=== PATIENT | female | born 1990 | race Asian ===

== ENCOUNTER 2020-08-15 07:42 | Outpatient (CLI) | payer OTHER ==
[2020-08-15] MEDS ORDERED: GADOBUTROL 10 MMOL/10 ML VIAL ONE (08:28)
--- NOTE | 2020-08-15 12:55 | MRI Report ---
PROCEDURE: Pelvis W/WO INDICATIONS: UNICORNUATE UTERUS CONTRAST: IV CONTRAST: Gadavist ml: 5.5 TECHNIQUE: Coronal ultra fast SE, sagittal breath-hold T2 FSE; axial T1 FSE with and without fat saturation thro ugh the pelvis. Optional long- and short-axis uterine nonbreath-hold T2 FSE through the uterus. Sag ittal or axial dynamic ultra fast GE during administration of contrast. Post-contrast axial or coron al ultra fast GE / 2-D spoiled GE with fat saturation from the iliac crests to the symphysis. Option al diffusion weighted imaging and ADC may be performed. COMPARISON: None. FINDINGS: Image quality: Excellent. Uterus: The uterus is retroverted and slightly diminutive size measuring about 4.0 x 5.9 x 3.8 cm. Th e cervix measures about 4.4 cm in length. The uterine morphology is partially septate with a thin fib steve septum which does not quite extend to the internal cervical os. There is a single cervix without visible septation. The endometrial canal is of normal caliber. The junctional zone is thin. There ar e no myometrial masses. Adnexa: Both ovaries are normal in size, without suspicious cystic or solid lesions. Physiologic do minant follicle present on the left ovary. Urinary system: Bladder wall is normal in thickness. Distal ureters are non distended. Urethra hudson ears normal in morphology. Nodes and vessels: No pelvic or inguinal adenopathy by size criteria. Iliac vessels are normal in s ize. Bowel and peritoneum: No pathologic free pelvic fluid. Inferior colon and small bowel loops are nor mal in caliber. Soft tissues: No inguinal hernias. No findings of pelvic floor incompetence in the absence of provo cation. Bones: Marrow demonstrates normal overall signal. IMPRESSION: 1. Partially septate uterus. 2. Normal ovaries. Reviewed by: Iris Nina MD on 08/15/2020 12:54 PM PST Approved by: Iris Nina MD on 08/15/2020 12:54 PM PST Station ID: [id number]
[2020-08-15] MEDS ORDERED: GADOBUTROL 10 MMOL/10 ML VIAL IVP ONE (13:18)
== END 2020-08-15 07:43 | disposition home or self-care (01) ==
LOC: DI 07:42
PROVIDERS: ATTEND Obstetrics & Gynecology Reproductive Endocrinology
DX: Q51.9 Congenital malformation of uterus and cervix, unspecified (principal); Q51.22 Partial doubling of uterus
CPT/HCPCS: 72197; A9585

== ENCOUNTER 2020-10-03 18:07 | Outpatient (CLI) | payer OTHER | END 2020-10-03 18:08 | disposition home or self-care (01) | LOC: LAB.S 18:07 | PROVIDERS: ATTEND Obstetrics & Gynecology Reproductive Endocrinology | DX: Z00.00 Encounter for general adult medical examination without abnormal findings (principal) | CPT/HCPCS: 36415; 84443 ==

== ENCOUNTER 2020-10-29 16:40 | Outpatient (CLI) | payer OTHER | END 2020-10-29 16:41 | disposition home or self-care (01) | LOC: COV 16:40 | PROVIDERS: ATTEND Obstetrics & Gynecology Reproductive Endocrinology | DX: Z01.812 Encounter for preprocedural laboratory examination (principal); Z20.822 Contact with and (suspected) exposure to COVID-19 ==

== ENCOUNTER 2022-08-29 12:18 | Outpatient (CLI) | payer OTHER | END 2022-08-29 12:19 | disposition home or self-care (01) | LOC: LAB.S 12:18 | PROVIDERS: ATTEND Obstetrics & Gynecology Reproductive Endocrinology | DX: Z32.00 Encounter for pregnancy test, result unknown (principal) | CPT/HCPCS: 36415; 84702 ==

== ENCOUNTER 2022-09-08 13:32 | Outpatient (CLI) | payer OTHER ==
[2022-09-08 20:12] LABS: BASOPHILS % (AUTO) 0.6 %; EOSINOPHILS # (AUTO) 0.1 10^3/uL (0.0-0.7); EOSINOPHILS % (AUTO) 1.5 %; HCT - HEMATOCRIT 30.8 % (37.0-47.0); HGB - HEMOGLOBIN 9.2 g/dL (12.0-16.0); LYMPHOCYTES # (AUTO) 1.3 10^3/uL (1.5-3.5); MEAN CORPUSCULAR HGB CONC 29.9 g/dL (32.0-36.0); MEAN PLATELET VOLUME 10.3 fL (7.9-10.8); MONOCYTES # (AUTO) 0.6 10^3/uL (0.0-1.0); MONOCYTES % (AUTO) 8.3 %; NEUTROPHILS # (AUTO) 4.6 10^3/uL (1.5-6.6); NEUTROPHILS % (AUTO) 69.1 %; PLT - PLATELET COUNT 274 10^3/uL (130-450); WHITE BLOOD COUNT 6.7 x10^3/uL (4.8-10.8)
[2022-09-08 20:16] LABS: SLIDE REVIEW? Indicated
[2022-09-08 20:32] LABS: CREATININE 0.5 mg/dL (0.4-1.0); CREATININE,URINE 33.8 mg/dL; MICROALBUM/CREATININE RATIO,UR 5.9 ug/mg (<30.0); MICROALBUMIN,URINE 0.2 mg/dL (0-300.0); URIC ACID 3.4 mg/dL (2.6-7.2)
[2022-09-08 20:53] LABS: PLATELET ESTIMATE, MANUAL NORMAL (130-450,000) (NORMAL); PLATELET MORPHOLOGY NORMAL APPEARANCE (NORMAL); THYROID STIMULATING HORMONE 2.55 uIU/mL (0.34-5.60)
[2022-09-08 20:55] LABS: FREE T4 (FREE THYROXINE) 1.05 ng/dL (0.58-1.64)
[2022-09-08 21:16] LABS: TOTAL PROTEIN,URINE TIMED < 6 mg/dL
[2022-09-08 22:58] LABS: CHLAMYDIA TRACHOMATIS DNA NEGATIVE (NEGATIVE); NEISSERIA GONORRHOEAE DNA NEGATIVE (NEGATIVE); TRICHOMONAS VAGINALIS DNA NEGATIVE (NEGATIVE)
[2022-09-10 06:10] LABS: HBsAG SCREEN Negative (Negative)
[2022-09-10 07:09] LABS: RPR Non Reactive (Non Reactive)
[2022-09-11 00:07] LABS: HCV AB Non Reactive (Non Reactive); HIV SCREEN 4TH GENERATION Non Reactive (Non Reactive)
== END 2022-09-08 13:33 | disposition home or self-care (01) ==
LOC: LAB.S 13:32
PROVIDERS: ATTEND Obstetrics & Gynecology
DX: O09.90 Supervision of high risk pregnancy, unspecified, unspecified trimester (principal); O99.280 Endocrine, nutritional and metabolic diseases complicating pregnancy, unspecified trimester; E03.8 Other specified hypothyroidism
CPT/HCPCS: 36415; 81599; 82043; 82565; 82570; 83615; 84156; 84439; 84443; 84450; 84460; 84520; 84550; 85025; 86592; 86762; 86803; 86850; 86900; 86901; 87086; 87340; 87389; 87491; 87591; 87661

== ENCOUNTER 2023-02-10 10:34 | Outpatient (CLI) | payer OTHER ==
[2023-02-10 11:27] LABS: THYROID STIMULATING HORMONE 1.55 uIU/mL (0.34-5.60)
== END 2023-02-10 10:35 | disposition home or self-care (01) ==
LOC: LAB 10:34
PROVIDERS: ATTEND Obstetrics & Gynecology Reproductive Endocrinology
DX: Z13.29 Encounter for screening for other suspected endocrine disorder (principal); Z32.01 Encounter for pregnancy test, result positive
CPT/HCPCS: 36415; 84443; 84702

== ENCOUNTER 2023-04-18 09:54 | Outpatient (CLI) | payer OTHER ==
[2023-04-18 10:43] LABS: THYROID STIMULATING HORMONE 2.17 uIU/mL (0.34-5.60)
== END 2023-04-18 09:55 | disposition home or self-care (01) ==
LOC: LAB 09:54
PROVIDERS: ATTEND Obstetrics & Gynecology Reproductive Endocrinology
DX: Z32.00 Encounter for pregnancy test, result unknown (principal)
CPT/HCPCS: 36415; 84443; 84702

== ENCOUNTER 2023-11-27 08:00 | Outpatient (CLI) | payer OTHER | END 2023-11-27 23:59 | disposition home or self-care (01) | LOC: LAB.S 08:00 | PROVIDERS: ATTEND Physician Assistant Medical | DX: R10.9 Unspecified abdominal pain (principal); R50.81 Fever presenting with conditions classified elsewhere | CPT/HCPCS: 87077; 87086 ==

== ENCOUNTER 2023-12-28 18:44 | Emergency (ER) | payer OTHER ==
--- NOTE | 2023-12-28 20:55 | ED Physician Documentation ---
History of Present Illness - Stated complaint Stated Complaint: R ARM SWELLING - Chief complaint Chief Complaint: Ext Problem - History obtained from History obtained from: Patient - Additonal information Additional information: Recent complicated delivery with massive transfusion and multiple IVs. Went to the walk-in clinic today for pain in the antecubital fossa and was referred here for further evaluation and treatment. No fevers. 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, Hysterectomy - Allergies Allergies/Adverse Reactions: Allergies Allergy/AdvReac Type Severity Reaction Status Date / Time No Known Drug Allergies Allergy Verified 12/28/23 18:47 - Social History Does the pt smoke?: No Smoking Status: Never smoker Does the pt drink ETOH?: No Does the pt have substance abuse?: No - Immunizations Immunizations are current?: Yes - POLST Patient has POLST: No PD ED PE NORMAL - Vitals Vital signs reviewed: Yes - General General: Alert and oriented X 3, No acute distress - Extremities Extremities: Other (There is warmth redness and cording in the antecubital fossa on the right with full range of motion. No cellulitis. Normal radial pulse.) - Psych Psych: Normal mood, Normal affect Results - Vitals Vitals: Vital Signs - 24 hr 12/28/23 18:47 Temperature 36.8 C Heart Rate 80 Respiratory 16 Rate O2 Saturation 100 Oxygen O2 Source Room air PD Medical Decision Making - ED course ED course: Bedside ultrasound of the right upper extremity demonstrates that she has superficial phlebitis with clotting of the median cubital and cephalic vein. There is no fluid collection to suggest abscess. Departure - Departure Disposition: 01 Home, Self Care Clinical Impression: Superficial thrombophlebitis of right upper extremity Condition: Good Record reviewed to determine appropriate education?: Yes Instructions: ED Phlebitis Superficial Comments: You were seen today for superficial thrombophlebitis, clotting off of the small veins in the upper extremity related to the IVs. There is no abscess. You can use Advil/ibuprofen per package instructions and warm compresses. Follow-up with your doctor in a week for recheck. Return for new or worsening symptoms.
[2023-12-28 21:03] VITALS: O2SAT 98
== END 2023-12-28 21:03 | disposition home or self-care (01) ==
LOC: MERGE 18:44 → ED 18:44
DX: O87.0 Superficial thrombophlebitis in the puerperium (principal)
CPT/HCPCS: 99281; 99283